=== PATIENT | male | born 1995 | race American Indian/Alaskan Native ===

== ENCOUNTER 2018-11-20 20:49 | Emergency (ER) | payer OTHER ==
--- NOTE | 2018-11-20 21:44 | Emergency Department Report ---
Blank Doc - Documentation Documentation: c/o of dizziness, worsen with standing and position changes. no coryza or chest pain no fever or chills. no ear aches. also has lesion developing on lip.
[2018-11-20 22:24] LABS: Basophils % (Auto) 0.9 % (0.0-1.8); Eosinophils % (Auto) 0.4 % (0.0-4.3); Hemoglobin 15.8 gm/dl (11.8-15.2); Lymphocytes # (Auto) 1.8 K/mm3 (1.2-5.4); Lymphocytes % (Auto) 36.9 % (13.4-35.0); Mean Corpuscular HGB Conc 34 % (32-34); Mean Corpuscular Volume 91 fl (84-94); Monocytes # (Auto) 0.4 K/mm3 (0.0-0.8); Monocytes % (Auto) 8.3 % (0.0-7.3); Red Blood Count 5.04 M/mm3 (3.65-5.03); Red Cell Distribution Width 12.8 % (13.2-15.2)
[2018-11-20 22:33] LABS: Platelet Count 260 K/mm3 (140-440)
--- NOTE | 2018-11-20 22:44 | XRay Report ---
PROCEDURE: XR CHEST ROUTINE 2V TECHNIQUE: PA and lateral chest radiographs were obtained. HISTORY: dizziness COMPARISONS: None. FINDINGS: Heart: Normal. Mediastinum/Vessels: Normal. Lungs/Pleural space: Normal. Bony thorax: No acute osseous abnormality. IMPRESSION: Normal examination. This document is electronically signed by Travon Cruz MD., Nov 20 2018 10:42:31 PM ET
[2018-11-20 22:49] LABS: Alanine Aminotransferase 17 units/L (7-56); Albumin 4.5 g/dL (3.9-5); BUN/Creatinine Ratio 12; Blood Urea Nitrogen 11 mg/dL (9-20); Calcium 9.7 mg/dL (8.4-10.2); Hemolysis Index 60
[2018-11-20] MEDS ORDERED: BENADRYL PO ONE (23:46)
[2018-11-20] MEDS ORDERED: DELTASONE PO ONE (23:47)
--- NOTE | 2018-11-20 23:55 | Emergency Department Report ---
ED Dizziness HPI - General Chief Complaint: Dizziness Stated Complaint: GENERAL ILLINESS Time Seen by Provider: 11/20/18 21:35 Source: patient Mode of arrival: Ambulatory Limitations: No Limitations - History of Present Illness Initial Comments: c/o of dizziness, worsen with standing and position changes. no coryza or chest pain no fever or chills. no ear aches. also has lesion developing on lip. MD Complaint: dizziness Onset/Timin -: week(s) Timing: gradual onset History of Same: No History of Trauma: No Severity: mild Improves With: nothing Worsens With: movement Associated Symptoms: cough. denies: chest pain, confusion, fever/chills, seizure, shortness of breath, syncope, weakness - Related Data Previous Rx's Medication Instructions Recorded Last Taken Type Acyclovir [Acyclovir Ointment] 1 applicatio TP 5XD 10 Days #1 tube 11/21/18 Un known Rx Cetirizine HCl [Zyrtec] 10 mg PO DAILY #30 tablet 11/21/18 Unknown Rx Fluticasone [Flonase] 1 spray NS QDAY #1 bottle 11/21/18 Unknown Rx Allergies Allergy/AdvReac Type Severity Reaction Status Date / Time No Known Allergies Allergy Unverified 11/20/18 20:57 ED Review of Systems ROS: Stated complaint: GENERAL ILLINESS Other details as noted in HPI Constitutional: denies: chills, fever Eyes: denies: eye pain, eye discharge, vision change ENT: congestion (sinus). denies: ear pain, throat pain Respiratory: cough (clear ). denies: shortness of breath, wheezing Cardiovascular: denies: chest pain, palpitations Endocrine: no symptoms reported Gastrointestinal: denies: abdominal pain, nausea, vomiting, diarrhea, constipation Genitourinary: denies: urgency, dysuria Musculoskeletal: denies: back pain, joint swelling, arthralgia Skin: lesions (fever blister upper lip). denies: rash Neurological: denies: headache, weakness, numbness, paresthesias, confusion, vertigo Psychiatric: denies: anxiety, depression Hematological/Lymphatic: denies: easy bleeding, easy bruising ED Past Medical Hx - Past Medical History Previous Medical History?: No - Surgical History Past Surgical History?: No - Medications Home Medications: Home Medications Medication Instructions Recorded Confirmed Last Taken Type Acyclovir [Acyclovir Ointment] 1 applicatio TP 5XD 10 Days #1 tube 11/21/18 Unknown Rx Cetirizine HCl [Zyrtec] 10 mg PO DAILY #30 tablet 11/21/18 Unknown Rx Fluticasone [Flonase] 1 spray NS QDAY #1 bottle 11/21/18 Unknown Rx ED Physical Exam - General Limitations: No Limitations General appearance: alert, in no apparent distress - Head Head exam: Present: atraumatic, normocephalic - Eye Eye exam: Present: normal appearance, PERRL, EOMI - ENT ENT exam: Present: mucous membranes moist, normal external ear exam - Expanded ENT Exam Expanded Ear exam: Present: normal external inspection, other (bilat sinus pressure ) TM/Canal exam: Erythema: Right TM, Left TM (mild ) Mouth exam: Present: other (fever blister upper lip small ). Absent: trismus Teeth exam: Present: normal inspection Throat exam: Positive: tonsillar erythema, tonsillomegaly, other (uvula midline no exudate no lesions no stridor ). Negative: tonsillar exudate, R peritonsillar mass, L peritonsillar mass - Neck Neck exam: Present: normal inspection, tenderness, meningismus, full ROM. Absent: lymphadenopathy, thyromegaly - Respiratory Respiratory exam: Present: normal lung sounds bilaterally. Absent: respiratory distress, wheezes, stridor, chest wall tenderness - Cardiovascular Cardiovascular Exam: Present: regular rate, normal heart sounds - GI/Abdominal GI/Abdominal exam: Present: soft, normal bowel sounds. Absent: tenderness, bruit, hernia - Rectal Rectal exam: Present: deferred - Extremities Exam Extremities exam: Present: normal inspection, full ROM, normal capillary refill. Absent: tenderness - Back Exam Back exam: Present: normal inspection, full ROM. Absent: tenderness, rash noted - Neurological Exam Neurological exam: Present: alert, oriented X3, CN II-XII intact, normal gait - Psychiatric Psychiatric exam: Present: normal affect (*), normal mood - Skin Skin exam: Present: warm, dry, intact, normal color. Absent: rash ED Course Vital Signs 11/20/18 20:52 Temperature 98.6 F Pulse Rate 73 Respiratory 18 Rate Blood Pressure 123/67 O2 Sat by Pulse 100 Oximetry ED Medical Decision Making - Lab Data Result diagrams: 11/20/18 21:52 11/20/18 21:52 - Radiology Data Radiology results: report reviewed, image reviewed Normal examination - Medical Decision Making pt appears well nontoxic well hydrated, there is no dizziness at this time, ENT: bilat Tm mild erythema no pain no tinnitis, turbinates are boggy clear post nasal drip, pharynx: mild erythema uvula midline clear post nasal drip, lungs are clear bilat, cxr: normal no infiltrates no opacities, no wheezing or cough at this time, DX :this is allergic rhinitis, and fever blister plan, flonase, zyrtec, acyclovir follow up with pcp in 2-3 days, return to ed if symptoms worsen Critical care attestation.: If time is entered above; I have spent that time in minutes in the direct care of this critically ill patient, excluding procedure time. ED Disposition Clinical Impression: Allergic rhinitis Qualifiers: Allergic rhinitis trigger: unspecified Allergic rhinitis seasonality: unspecified Qualified Code(s): J30.9 - Allergic rhinitis, unspecified Disposition: - TO HOME OR SELFCARE Is pt being admited?: No Does the pt Need Aspirin: No Condition: Stable Instructions: Allergic Rhinitis (ED), Oral Herpes Simplex Virus Infections (ED) Prescriptions: Acyclovir [Acyclovir Ointment] 1 applicatio TP 5XD 10 Days #1 tube Fluticasone [Flonase] 1 spray NS QDAY #1 bottle Cetirizine HCl [Zyrtec] 10 mg PO DAILY #30 tablet Referrals: [facility] [Outside] - 3-5 Days Forms: Work/School Release Form(ED) Time of Disposition: 00:10
[2018-11-21 00:05] VITALS: BP 117/83
== END 2018-11-21 00:24 | disposition home or self-care (01) ==
LOC: ED 20:49
DX: J30.9 Allergic rhinitis, unspecified (principal)
CPT/HCPCS: 36415; 71046; 80053; 85025; 99283; J7512

== ENCOUNTER 2019-01-19 18:48 | Emergency (ER) | payer SELFPAY ==
[2019-01-19] MEDS ORDERED: ROCEPHIN/NS 1 GM/50 ML 0 GM/0 ML BAG IV ONE (19:34)
[2019-01-19] MEDS ORDERED: NACL 0.45% 1000 ML 0 ML IV ONE (19:34)
[2019-01-19] MEDS ORDERED: NACL 0.9% 1000 ML 0 ML ONE (19:36)
[2019-01-19 19:57] VITALS: BP 112/60
--- NOTE | 2019-01-19 20:05 | Emergency Department Report ---
Chief Complaint: Back Pain/Injury Stated Complaint: BACK PAIN Time Seen by Provider: 01/19/19 19:58 - HPI History of Present Illness: 23 y/o male comes in for back pain after lifting at work. Patient denies any trauma or urinary sxs. Patient has not taking any medications for pain. - ROS Review of Systems: Back pain worst with bending. No urinary sxs. No trauma - Exam Vital Signs: Vital Signs 01/19/19 19:55 Temperature 98.6 F Pulse Rate 97 H Respiratory 20 Rate Blood Pressure 112/60 O2 Sat by Pulse 97 Oximetry Physical Exam: A&O times 3. NAD FROM motion of back. Gait normal. MSE screening note: Focused history and physical exam performed. Due to findings the following was ordered: Discuss with patient he can harvey over the counter Ibuprofen for pain management. Increase his water intake. ED Disposition for MSE Condition: Stable
== END 2019-01-19 20:23 | disposition home or self-care (01) ==
LOC: ED 18:48
DX: M54.89 Other dorsalgia (principal); Z53.21 Procedure and treatment not carried out due to patient leaving prior to being seen by health care provider
CPT/HCPCS: J0696; J7030

== ENCOUNTER 2019-09-20 20:19 | Emergency (ER) | payer SELFPAY ==
--- NOTE | 2019-09-20 20:25 | Emergency Department Report ---
Blank Doc - Documentation Documentation: 23-year-old male that presents with left upper arm lac s/p glass This initial assessment/diagnostic orders/clinical plan/treatment(s) is/are subject to change based on patient's health status, clinical progression and re- assessment by fellow clinical providers in the ED. Further treatment and workup at subsequent clinical providers discretion. Patient/guardians urged not to elope from the ED as their condition may be serious if not clinically assessed and managed. Initial orders include: 1- Patient sent to [facility] for further evaluation and treatment 2- xrays
--- NOTE | 2019-09-20 21:26 | XRay Report ---
LEFT HUMERUS 2 VIEWS INDICATION / CLINICAL INFORMATION: left lac r/o glass foreign body COMPARISON: None available. FINDINGS: BONES / JOINT(S): No acute fracture or subluxation. No significant arthritis. SOFT TISSUES: No radiopaque foreign bodies are seen. ADDITIONAL FINDINGS: None. Signer Name: Oswald Carlisle MD Signed: 09/20/2019 9:21 PM Workstation Name: [id number]
[2019-09-21] MEDS ORDERED: HYDROcodone/ACETAMINOPHEN 5-325 MG TAB PO ONE (01:41)
[2019-09-21] MEDS ORDERED: LIDOCAINE-MPF (1%) 10 MG/1 ML VIAL 5 ML INFILTRATI ONE (01:42)
[2019-09-21] MEDS ORDERED: TETANUS,DIPH,PERTUSS(ACELL) VACCINE 0.5 ML SYRINGE IM ONE (02:16)
--- NOTE | 2019-09-21 02:18 | Emergency Department Report ---
- General Chief Complaint: Wound/Laceration Stated Complaint: LEFT SHOULDER LACERATION Time Seen by Provider: 09/20/19 20:24 Source: patient Mode of arrival: Ambulatory Limitations: No Limitations - History of Present Illness Initial Comments: Patient is a 23-year-old male presents emergency room with complaints of a lacerations to the left arm that occurred at approximately 8 PM. He states that he was playing around and accidentally got pushed into a window which caused the glass to break. He denies completely falling through the window. He denies any pain in the arm to states he has some discomfort around the laceration. He denies any numbness or weakness. He is unsure of his last tetanus immunization. He denies any past medical history or allergies to medications. - Related Data Previous Rx's Medication Instructions Recorded Last Taken Type Acyclovir [Acyclovir Ointment] 1 applicatio TP 5XD 10 Days #1 tube 11/21/18 Unknown Rx Cetirizine HCl [Zyrtec] 10 mg PO DAILY #30 tablet 11/21/18 Unknown Rx Fluticasone [Flonase] 1 spray NS QDAY #1 bottle 11/21/18 Unknown Rx Allergies Allergy/AdvReac Type Severity Reaction Status Date / Time No Known Allergies Allergy Verified 01/19/19 19:57 ED Review of Systems ROS: Stated complaint: LEFT SHOULDER LACERATION Other details as noted in HPI Comment: All other systems reviewed and negative ED Past Medical Hx - Past Medical History Previous Medical History?: No - Surgical History Past Surgical History?: No - Social History Smoking Status: Never Smoker Substance Use Type: None - Medications Home Medications: Home Medications Medication Instructions Recorded Confirmed Last Taken Type Acyclovir [Acyclovir Ointment] 1 applicatio TP 5XD 10 Days #1 tube 11/21/18 Unknown Rx Cetirizine HCl [Zyrtec] 10 mg PO DAILY #30 tablet 11/21/18 Unknown Rx Fluticasone [Flonase] 1 spray NS QDAY #1 bottle 11/21/18 Unknown Rx ED Physical Exam - General Limitations: No Limitations General appearance: alert, in no apparent distress - Head Head exam: Present: atraumatic, normocephalic - Eye Eye exam: Present: normal appearance - ENT ENT exam: Present: mucous membranes moist - Neurological Exam Neurological exam: Present: alert, oriented X3 - Psychiatric Psychiatric exam: Present: normal affect, normal mood - Skin Skin exam: Present: warm, dry, other (2.5 cm laceration present to the left upper arm near the deltoid regoin, no muscle/tendon involvement, no foreign body, a couple of small linear abrasions present to the left upper arm in the deltoid region, 1 cm very superifical laceration present the left upper arm near the deltoid region, no active bleeding, no foreign body visualized, no muscle/tendon involvement, FROM of the LUE, neurovascularly intact) ED Course Vital Signs 09/20/19 20:29 Temperature 98.0 F Pulse Rate 99 H Respiratory 18 Rate Blood Pressure 121/74 O2 Sat by Pulse 96 Oximetry - Laceration /Wound Repair Left Upper Arm Wound Location: upper extremity (left upper arm near the deltoid region) Wound Length (cm): 2 (2.5 cm) Wound's Depth, Shape: superficial Wound Explored: clean Irrigated w/ Saline (ccs): 100 Betadine Prep?: Yes Anesthesia: 1% Lidocaine Volume Anesthetic (ccs): 5 Wound Debrided: minimal Wound Repaired With: sutures Suture Size/Type: 3:0 Number of Sutures: 6 Layer Closure?: No Sterile Dressing Applied?: Yes Progress: Laceration irrigated with saline and thoroughly scrubbed with Betadine, no muscle or tendon involvement, no foreign body, 5 cc of 1% lidocaine without epinephrine used as anesthetic, Betadine prep again, sterile drapes applied, sterile gloves worn, 6 sutures placed of 3-0 Prolene, patient tolerated well, no complications, bleeding controlled, sterile dressing applied Small 1 cm superficial laceration to the left upper arm irrigated with saline and scrubbed with Betadine, appears to only go through the dermis and epidermis, does not involve the subcutaneous tissue, Dermabond used for skin closure, Steri-Strips applied, patient tolerated well, no bleeding, no complications ED Medical Decision Making - Radiology Data Radiology results: report reviewed LEFT HUMERUS 2 VIEWS INDICATION / CLINICAL INFORMATION: left lac r/o glass foreign body COMPARISON: None available. FINDINGS: BONES / JOINT(S): No acute fracture or subluxation. No significant arthritis. SOFT TISSUES: No radiopaque foreign bodies are seen. ADDITIONAL FINDINGS: None. Signer Name: Oswald Carlisle MD Signed: 09/20/2019 9:21 PM Workstation Name: [id number] Transcribed By: SS Dictated By: Oswald Carlisle MD Electronically Authenticated By: Oswald Carlisle MD Signed Date/Time: 09/20/192120 DD/ 20 TD/TT: - Medical Decision Making Patient is a 23-year-old male presents emergency room with complaints of a lacerations to the left arm that occurred at approximately 8 PM. He states that he was playing around and accidentally got pushed into a window which caused the glass to break. He denies completely falling through the window. He denies any pain in the arm to states he has some discomfort around the laceration. He denies any numbness or weakness. He is unsure of his last tetanus immunization. He denies any past medical history or allergies to medications. Vitals are normal. On exam: 2.5 cm laceration present to the left upper arm ne ar the deltoid regoin, no muscle/tendon involvement, no foreign body, a couple of small linear abrasions present to the left upper arm in the deltoid region, 1 cm very superifical laceration present the left upper arm near the deltoid region, no active bleeding, no foreign body visualized, no muscle/tendon involvement, FROM of the LUE, neurovascularly intact. XR left humerus: No acute fracture or subluxation. No significant arthritis. SOFT TISSUES: No radiopaque foreign bodies are seen. Patient given tetanus immunization. Areas irrigated with saline and scrubbed with Betadine. Laceration is repaired per procedure note with sutures and Dermabond with Steri-Strips. advised pt Please keep area clean, dry, covered. May leave current Steri-Strips in place for 2 days. May wash with soap and water and immediately dry. No hot tub, no pool, no soaking in water. Follow-up with a primary care doctor. Sutures need to be removed in 10 days. Return to the emergency room for any new or worsening symptoms. Critical care attestation.: If time is entered above; I have spent that time in minutes in the direct care of this critically ill patient, excluding procedure time. ED Disposition Clinical Impression: Laceration of left upper arm Qualifiers: Encounter type: initial encounter Qualified Code(s): S41.112A - Laceration without foreign body of left upper arm, initial encounter Disposition: DC- TO HOME OR SELFCARE Is pt being admited?: No Does the pt Need Aspirin: No Condition: Stable Instructions: Suture Care (ED), Laceration (ED), Skin Adhesive Care (ED) Additional Instructions: Please keep area clean, dry, covered. May leave current Steri-Strips in place for 2 days. May wash with soap and water and immediately dry. No hot tub, no pool, no soaking in water. Follow-up with a primary care doctor. Sutures need to be removed in 10 days. Return to the emergency room for any new or worsening symptoms. Referrals: EMILY ALCANTAR MD [Staff Physician] - 3-5 Days [facility] [Outside] - 3-5 Days [facility] [Outside] - 3-5 Days Time of Disposition: 03:03 Print Language: THAI
[2019-09-21 03:26] VITALS: BP 116/76
== END 2019-09-21 03:27 | disposition home or self-care (01) ==
LOC: ED 20:19
DX: S41.112A Laceration without foreign body of left upper arm, initial encounter (principal); Z79.899 Other long term (current) drug therapy; W51.XXXA Accidental striking against or bumped into by another person, initial encounter; Y93.89 Activity, other specified; Y92.89 Other specified places as the place of occurrence of the external cause; Y99.8 Other external cause status
CPT/HCPCS: 90471; 90715; 99283